=== PATIENT | female | born 1995 | race Caucasian/White ===

== ENCOUNTER 2017-04-17 19:45 | Observation (INO) | payer OTHER ==
[2017-04-17 19:56] VITALS: RESP 16
--- NOTE | 2017-04-17 20:25 | CPEKG ---
Heart Rate: 75 RR Interval: 800 P-R Interval: 148 QRSD Interval: 92 QT Interval: 388 QTC Interval: 434 P [place]: 71 QRS [place]: 73 T Wave [place]: 38 EKG Severity - NORMAL ECG - EKG Impression: SINUS RHYTHM Electronically Signed By: Wyatt Crook 17-Apr-2017 23:42:11
--- NOTE | 2017-04-17 20:36 | EDPHY ---
H & P Stated Complaint: vasovagal syncope, vomiting, dyspnea d/t enlarged tonsils - Personal History LMP (Females 10-55): Now Current Tetanus/Diphtheria Vaccine: Unsure - Medical/Surgical History Hx Asthma: Yes Hx Chronic Respiratory Disease: No Hx Diabetes: No Hx Cardiac Disease: No Hx Renal Disease: No Hx Cirrhosis: No Hx Alcoholism: No Hx HIV/AIDS: No Hx Splenectomy or Spleen Trauma: No Other PMH: PSHx: kidney/ureter, labrum, hernia, wisdom tooth extraction. PMHx: depression, anxiety - Social History Smoking Status: Never smoked Time Seen by Provider: 04/17/17 20:25 HPI/ROS: CHIEF COMPLAINT: "I keep passing out " HISTORY OF PRESENT ILLNESS: 21-year-old female arrives via private vehicle complaining of recurrent syncopal episodes over the past 2 weeks. The patient has been experiencing 2 weeks of pharyngitis, has completed a course of oral steroids and notes continued sore throat symptoms. 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 She is intermittently hit her head. She denies headache, denies signs of head injury. She denies incontinence during any of the episodes. Denies oral trauma during these episodes. These have been witnessed by bystanders. No apparent seizure-like activity. REVIEW OF SYSTEMS: A ten point review of systems was performed and is negative with the exception of the items mentioned in the HPI PAST MEDICAL & SURGICAL HISTORY: History of depression, anxiety, ECT, anorexia SOCIAL HISTORY:student nonsmoker no drug use PHYSICAL EXAM (Prior to examination, patient consented to physical exam, hands were washed and my usual and customary physical exam procedures followed) 1) GENERAL: Well-developed, well-nourished, alert and oriented. Appears to be in no acute distress. Answering questions appropriately 2) HEAD: Normocephalic, atraumatic 3) HEENT: Pupils equal, round, reactive to light bilaterally. Sclera anicteric. Oropharynx: Bilateral tonsils are symmetrically enlarged without exudate. Uvula midline. No trismus no drooling. No signs of peritonsillar abscess or deep space infection. Submandibular and submental spaces are soft. No evidence of Edu's angina. No signs of trauma no tongue abrasion or laceration. Ears bilaterally with normal tympanic membranes. 4) NECK: Full range of motion, no meningeal signs. 5) LUNGS: Clear auscultation bilaterally, no wheezes, no rhonchi, no retractions. 6) HEART: Regular rate and rhythm, no murmur, no heave, no gallop. 7) ABDOMEN: No guarding, no rebound, no focal tenderness, negative McBurney's, negative Rudd's, negative Rovsing's, negative peritoneal sign, 8) MUSCULOSKELETAL: Moving all extremities, no focal areas of tenderness, no obvious trauma. No peripheral edema or discoloration. 9) BACK: No CVA tenderness, no midline vertebral tenderness, no fluctuance, no step-off, no obvious trauma, no visual or palpable abnormality. 10) SKIN: No rash, no petechiae. 11) Psychiatric: Patient is oriented X 3, there is no agitation. 12) NEURO: Awake, alert, and oriented to person, place and time. Answers questions appropriately. There were no obvious focal neurologic abnormalities. No cerebellar dysfunction. Cranial nerves 2 through to 12 intact. Normal steady gait. Upper and lower extremities bilaterally with strength 5 / 5, reflexes 2+. DIFFERENTIAL DIAGNOSIS: in no particular order including but not limited to cardiac arrhythmia, seizure, POTS, somatization (Rabia,Caron Chandni) Constitutional: Initial Vital Signs Temperature (C) 36.9 C 04/17/17 19:51 Heart Rate 88 04/17/17 19:51 Respiratory Rate 16 04/17/17 19:51 Blood Pressure 120/80 04/17/17 19:51 O2 Sat (%) 96 04/17/17 19:51 O2 Delivery Mode Room Air Allergies/Adverse Reactions: No Known Allergies Allergy (Unverified 04/17/17 19:49) Home Medications: Medication Instructions Recorded Albuterol [Proventil Inhaler HFA 1 - 2 puffs IH DAILY PRN 04/17/17 (*)] Cetirizine [ZyrTEC 10 mg (*)] 10 mg PO HS 04/17/17 Herbals/Supplements -Info Only 1 ea PO DAILY 04/17/17 [place] Carbonate ER [Eskalith Cr 450 mg PO HS 04/17/17 450 mg (*)] Melatonin [Melatonin 3 MG (*)] 3 mg PO HS 04/17/17 QUEtiapine FUMARATE [Seroquel 25 12.5 mg PO HS 04/17/17 mg (*)] buPROPion SR [Wellbutrin 150mg SR 150 mg PO BID@,04/17/17 (*)] lamoTRIgine [LamICTAL 100 MG (*)] 400 mg PO HS 04/17/17 Desogestrel-Ethinyl Estradiol 1 each PO DAILY 04/18/17 [Enskyce 28 Tablet] LORazepam [Ativan (*)] 0.5 mg PO DAILY PRN 04/18/17 Multivitamins [Multivitamin (*)] 1 each PO HS 04/18/17 Medical Decision Making ED Course/Re-evaluation: Patient was re-evaluated with serial examinations. She has remained asymptomatic while in the ER, negative orthostatic vital signs. Case discussed with Dr. Wyatt Crook in the ER. Of concern this patient is her recurrent syncopal episodes over the past 2 weeks of unclear etiology, occurring in different positions including sitting position. Discussed possibility of seizure , discussed possibility of cardiac arrhythmia not captured while in the emergency department, discussed possibility of psychosomatic component. We recommended admission to the hospital for recurrent syncope. Patient and mother agreeable with this. 10:05 p.m.: Phone consultation with hospitalist Dr. Cross who will admit patient for recurrent syncope (Caron Camarillo) I did not see this patient while she was in the emergency department. However her care was discussed with the PA while the patient was in the department. I agree with treatment plan and management (Wyatt Crook) - Data Points Laboratory Results: Laboratory Results 04/17/17 20:29 04/17/17 20:29 Medications Given: Discontinued Medications Sodium Chloride (Ns) 1,000 mls @ 3,000 mls/hr IV ONCE ONE Stop: 04/17/17 22:29 Last Admin: 04/17/17 23:22 Dose: 1,000 mls Sodium Chloride (Ns) 1,000 mls @ 500 mls/hr IV CONT ARLEY Stop: 04/18/17 11:29 Last Admin: 04/18/17 09:00 Dose: 1,000 mls Influenza Virus Vaccine Quadrival (Fluarix Quad [id number]) 0.5 ml IM .ONCE ONE Stop: 04/18/17 11:08 Last Admin: 04/18/17 11:42 Dose: 0.5 ml Departure - Departure Disposition: [facility] Inpatient Acute Clinical Impression: Recurrent syncope, Mononucleosis Condition: Fair
[2017-04-17 20:42] LABS: % IMMATURE GRANULYOCYTES 0.3 % (0.0-1.1); ABSOLUTE IMMATURE GRANULOCYTES 0.03 10^3/uL (0.00-0.10); ADD DIFF? NO; ADD MORPH? NO; ADD SCAN? NO; ATYPICAL LYMPHOCYTE FLAG 10 (0-99); FRAGMENT RBC FLAG 0 (0-99); HEMATOCRIT 43.9 % (38.0-47.0); HEMOGLOBIN 14.6 g/dL (12.6-16.3); LEFT SHIFT FLG 0 (0-99); LIPEMIA HEMOLYSIS FLAG 80 (0-99); MEAN CELL HEMOGLOBIN 29.4 pg (27.9-34.1); MEAN CELL HEMOGLOBIN CONCENTR. 33.3 g/dL (32.4-36.7); MEAN CELL VOLUME 88.3 fL (81.5-99.8); PLATELET CLUMPS FLAG 10 (0-99); PLATELET COUNT 269 10^3/uL (150-400); RED BLOOD CELL COUNT 4.97 10^6/uL (4.18-5.33); RED CELL DISTRIBUTION WIDTH 12.7 % (11.5-15.2)
[2017-04-17 20:52] LABS: MONO TEST POSITIVE (NEGATIVE)
[2017-04-17 20:58] LABS: BHCG-QUALITATIVE NEGATIVE
[2017-04-17 21:04] LABS: ANION GAP 10 mEq/L (8-16); CALCIUM 9.9 mg/dL (8.5-10.4); CARBON DIOXIDE 22 mEq/l (22-31); CHLORIDE 104 mEq/L (97-110); CREATININE 0.8 mg/dL (0.6-1.0); GLOMERULAR FILTRATION RATE > 60; GLUCOSE 88 mg/dL (70-100); POTASSIUM 4.3 mEq/L (3.5-5.2); SODIUM 136 mEq/L (134-144)
[2017-04-17 21:20] LABS: LITHIUM < 0.2 mEq/L (0.6-1.2)
[2017-04-17] MEDS ORDERED: ONDANSETRON DISINTEGRATING 4 MG TAB PO PRN (22:10)
[2017-04-17] MEDS ORDERED: ACETAMINOPHEN 325 MG TAB PO PRN (22:10)
[2017-04-17] MEDS ORDERED: ONDANSETRON 4 MG/2 ML VIAL IVP PRN (22:10)
[2017-04-17] MEDS ORDERED: NS 1,000 ML IV ONE (22:10)
--- NOTE | 2017-04-17 23:21 | GHP ---
[f rep st] HISTORY AND PHYSICAL DATE OF ADMISSION: 04/17/2017 CHIEF COMPLAINT: Syncope. HISTORY OF PRESENT ILLNESS: A 21-year-old female, studying at with a history of severe depression and recent 6-month treatment course of ECT that completed early this summer. The patient reports being in a good state of health with normal oral intake until approximately 2 weeks ago, when she developed a sore throat that has been nonresponsive to steroids. She was experiencing some tenderness and drainage today, which led to coughing and posttussive emesis, followed by the patient losing consciousness. She had 2 of these episodes before presenting to the emergency department. In both instances , the patient denies any preceding chest pain, palpitations, or shortness of breath. She does feel short of breath after the episode, says she comes to quite quickly after losing consciousness without loss of bladder or bowel control. Patient believes that her oral intake has been adequate although cannot say specifically how many fluids she has been taking in with the sore throat. Does endorse increased panic attacks since she has gone back to school. She does report that she took Ativan this morning prior to these episodes of syncope. The patient describes the room as spinning sensation and then darkening eyes, blacking out sensation right before losing consciousness. She does report 2 other episodes of losing consciousness, all preceding her ECT therapy. None associated with palpitations, chest discomfort, or shortness of breath. None with any specific diagnoses. PAST MEDICAL HISTORY: 1. Severe depression with anorexia, status post ECT x 6 months, on stable medications. 2. UPJ dysfunction, status post surgical repair. 3. Torn left hip labrum, status post surgical repair. 4. History of anorexia. SOCIAL HISTORY: Negative for tobacco, alcohol or illicit drugs. 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 FAMILY HISTORY: Negative for syncope. REVIEW OF SYSTEMS: A 10-point review of systems is negative with the exception of that reported in the HPI. PHYSICAL EXAMINATION: VITAL SIGNS: Blood pressure 120/80, heart rate 88, respiratory rate 16, saturating 96% on room air, temp 36.9. GENERAL: This is a healthy-appearing young female in no acute distress. HEENT: Notable for dry mucous membranes. Eye exam is negative for any icterus. CARDIAC: Patient is regular rate and rhythm. No murmurs, gallops, or rubs. PULMONARY: Good respiratory effort. Clear to auscultation bilaterally. GASTROINTESTINAL: Positive bowel sounds. Abdomen is soft and nontender in all 4 quadrants. MUSCULOSKELETAL: Negative for any lower extremity edema. SKIN: Negative for any rashes. NEUROLOGIC: She is alert and oriented x3. Has a slight tremor when she gets nervous during examination. PSYCHIATRIC: She is pleasant and cooperative on interview and examination. DATA: Patient's mono screen is positive. [place] is less than 0.2. Creatinine 0.8. White count of 8.8. EKG, which I personally reviewed and interpreted, shows sinus rhythm, normal intervals with no acute ST-T changes. ASSESSMENT AND PLAN: This is a 21-year-old female presenting with 2 episodes of syncope the morning of presentation. 1. Syncope. Suspect this is likely multifactorial, a combination of dehydration with her mono and sore throat, the use of Ativan, and potentially vasovagal stimulus with her post-tussive emesis. Plan to admit the patient for telemetry monitoring overnight. Will give 1 L of normal saline for fluid resuscitation. We will continue her outpatient home medications with a cautious use of Ativan p.r.n. for panic attacks. Follow patient's symptoms overnight. If the patient remains in normal sinus rhythm on monitoring, could consider outpatient Holter monitor at disposition. 2. Severe depression. Will continue patient's home medications once reconciled. 3. Panic attacks. The patient is followed closely by her mental health providers and is on what she describes as recently stable medications. We will continue her home medications without change. All her intervals on EKG appear normal. 4. Prophylaxis: Patient is young and ambulating. 5. Diet: Regular. DISPOSITION: I expect less than 2 midnights if the patient has normal monitoring and symptomatically improved in the morning. I have discussed the case with the emergency room physician. Patient will be triaged to telemetry monitoring for complaints of recurrent syncope. /[id number]/MODL MTDD
[2017-04-18 00:08] LABS: COLOR YELLOW; LEUKOCYTE ESTERASE,URINE NEGATIVE (NEGATIVE); NITRITE,URINE NEGATIVE (NEGATIVE)
[2017-04-18 07:58] VITALS: BP 118/75; PULSE 77; TEMP 98.1; O2SAT 97
[2017-04-18] MEDS ORDERED: LORazepam 0.5 MG TAB PO PRN (09:02)
[2017-04-18] MEDS ORDERED: ALBUTEROL 60 PUFFS/8 GM MDI IH PRN (09:02)
[2017-04-18] MEDS ORDERED: DESOGESTREL ETHINYL ESTRADIOL PO SCH (09:15)
[2017-04-18] MEDS ORDERED: NS 1,000 ML IV SCH (09:30)
--- NOTE | 2017-04-18 09:34 | HOSPPROG ---
Hospitalist Progress Note Assessment/Plan: 21 yo F w vv syncope home today see dc summary Subjective: no events tele Objective: Vital Signs Temp Pulse Resp BP Pulse Ox 36.7 C 77 16 118/75 97 04/18/17 07:57 04/18/17 07:57 04/18/17 07:57 04/18/17 07:57 04/18/17 07:57 04/17/17 04/18/17 04/19/17 05:59 05:59 05:59 Intake Total 300 Output Total 200 Balance 100 - Physical Exam Constitutional: no apparent distress, appears nourished Eyes: PERRL, anicteric sclera Ears, Nose, Mouth, Throat: moist mucous membranes, hearing normal Cardiovascular: regular rate and rhythym, no murmur, rub, or gallop, No systolic murmur, No irregularly irregular, No diastolic murmur Respiratory: no respiratory distress, no rales or rhonchi Gastrointestinal: normoactive bowel sounds, soft, non-tender abdomen Genitourinary: No solo in urethra Skin: warm, normal color Musculoskeletal: full muscle strength Neurologic: AAOx3 ICD10 Worksheet Patient Problems: Problems Problem Status Onset Mononucleosis Acute
--- NOTE | 2017-04-18 09:58 | GDS ---
[f rep st] DISCHARGE SUMMARY DISCHARGE DIAGNOSES: 1. Vasovagal syncope. 2. Anxiety. 3. Mononucleosis. HISTORY: Please see admission history and physical by Dr. Bryant Cross. The patient presented with multiple syncopal episodes. She had an EKG with normal QT and no ST or T-wave changes. No abnormal morphology suggestive of something such as per Brug[place]. The patient had no events on telemetry. She has no family history of sudden cardiac disease. She handy d no cuts about her face, her arm suggesting syncope without prodrome, and she acknowledges that she has a syncope with a prodrome. Her labs are not necessarily consistent with dehydration. The patient is discharged home. She is given a L of IV fluids. We discussed further steroids for so re throat. We ultimately will not do that. She is not . /[id number]/MODL
[2017-04-18] MEDS ORDERED: FLU VACC QS 2017-18 (3YR+)/PF 0.5 ML SYR (FLUARIX QUAD) IM ONE (11:07)
[2017-04-18] MEDS ORDERED: buPROPion SR 150 MG TAB PO SCH (13:00)
--- NOTE | 2017-04-18 14:52 | ASDISCHSUM ---
Discharge Information Plan Status:Home with No Needs Medically Cleared to Leave:04/18/2017 Discharge Date:04/18/2017 12:05 PM CM D/C Disposition:Home, Routine, Self-Care ADT D/C Disposition:Home, Routine, Self-Care Projected Discharge Date:04/18/2017 12:05 PM Transportation at D/C:Family Discharge Delay Reason: Follow-Up Date:04/18/2017 12:05 PM Discharge Slot: Final Diagnosis: Placement Information Patient Contact Information Contact Name:MANDIENADJALATANYA Relationship:Mother Address: Work Phone: City: [facility] Phone: [facility]/ObjectWay Code: Email: Financial Information Financial Class:HMO and PPO Plans Primary Plan Desc:[employer] PPO POS HMO Primary Plan Number:[id number] Secondary Plan Desc: Secondary Plan Number: Assessment Information Intervention Information
[2017-04-18] MEDS ORDERED: MULTIVITAMINS 1 EACH TAB PO SCH (21:00)
[2017-04-18] MEDS ORDERED: lamoTRIgine 100 MG TAB PO SCH (21:00)
[2017-04-18] MEDS ORDERED: QUEtiapine FUMARATE 25 MG TAB PO SCH (21:00)
[2017-04-18] MEDS ORDERED: LITHIUM CARBONATE ER 450 MG TAB PO SCH (21:00)
[2017-04-18] MEDS ORDERED: MELATONIN 3 MG TAB PO SCH (21:00)
[2017-04-18] MEDS ORDERED: CETIRIZINE 10 MG TAB PO SCH (21:00)
[2017-04-19] MEDS ORDERED: Herbals/Supplements -Info Only PO SCH (09:00)
[2017-04-19] MEDS ORDERED: DESOGESTREL ETHINYL ESTRADIOL PO SCH (09:00)
== END 2017-04-18 12:05 | disposition home or self-care (01) ==
LOC: F2W 23:05
PROVIDERS: ADMIT Hospitalist; ATTEND Hospitalist
DX: R55 Syncope and collapse (principal); F41.9 Anxiety disorder, unspecified; B27.90 Infectious mononucleosis, unspecified without complication
CPT/HCPCS: 90471; 93005; G0378; 80307; G0008; G0480

== ENCOUNTER → 2018-01-04 | Outpatient (CLI) | payer OTHER | LOC: BMCIMAGING 11:58 | PROVIDERS: ATTEND Internal Medicine | DX: N63.0 Unspecified lump in unspecified breast (principal) ==

== ENCOUNTER → 2018-05-19 | Outpatient (CLI) | payer OTHER | LOC: BMCIMAGING 11:39 | PROVIDERS: ATTEND Family Medicine | DX: R07.81 Pleurodynia (principal) ==